=== PATIENT | female | born 1930 | race Caucasian/White ===

== ENCOUNTER 2016-10-12 00:55 | Inpatient (IN) | END 2016-10-15 23:00 | disposition home or self-care (01) | DRG 291 | DX: I11.0 Hypertensive heart disease with heart failure (principal); J81.0 Acute pulmonary edema; J18.9 Pneumonia, unspecified organism; F03.90 Unspecified dementia, unspecified severity, without behavioral disturbance, psychotic disturbance, mood disturbance, and anxiety; I48.91 Unspecified atrial fibrillation; N39.0 Urinary tract infection, site not specified; E03.9 Hypothyroidism, unspecified; Z79.02 Long term (current) use of antithrombotics/antiplatelets; I50.33 Acute on chronic diastolic (congestive) heart failure; I08.1 Rheumatic disorders of both mitral and tricuspid valves ==

== ENCOUNTER 2017-11-24 11:06 | Outpatient (CLI) | END 2017-11-24 15:28 | disposition home or self-care (01) ==